=== PATIENT | male | born 1930 | race Two or more races ===

== ENCOUNTER 2017-12-18 07:57 | Inpatient (IN) | payer MEDICARE ==
[2017-12-18] MEDS ORDERED: MORPHINE SULFATE 10 MG/ML INJ IV PRN (08:30)
[2017-12-18] MEDS ORDERED: NORMAL SALINE 500 ML IV ONE (08:30)
--- NOTE | 2017-12-18 08:31 | ER Document Report ---
ED GI/ - General Chief Complaint: Abdominal Pain Stated Complaint: GROIN PAIN Time Seen by Provider: 12/18/17 08:15 Notes: 87-year-old male to emergency department chief complaint of lower abdominal pain mass. Patient states that he has noticed that he has a hernia in the right lower quadrant area. Large mass. Unable to get it pushed in. Significant amount of pain. No fever, chills, sweats. No vomiting. Normally he uses an elevator but has been walking up and down stairs recently. History of prostate cancer with radiation. Denies any other symptoms at this time. TRAVEL OUTSIDE OF THE [place] IN LAST 30 DAYS: No - HPI Patient complains to provider of: Abdominal pain Onset: Just prior to arrival - Related Data Allergies/Adverse Reactions: aspirin Adverse Reaction (Verified 12/18/17 13:29) Past Medical History - General Information source: Patient - Social History Smoking Status: Never Smoker Cigarette use (# per day): No Frequency of alcohol use: None Drug Abuse: None Lives with: Family Family History: Reviewed & Not Pertinent Review of Systems - Review of Systems Notes: Constitutional: denies: Chills, Diaphoresis, Fever, Malaise, Weakness EENT: denies: Eye discharge, Blurred vision, Tearing, Double vision, Nose congestion, Nose discharge, Throat swelling, Mouth pain Cardiovascular: denies: Palpitations, Heart racing, Orthopnea, Dyspnea. denies : Chest pain Respiratory: denies: Cough, Hurts to breathe, Wheezing, Shortness of breath Gastrointestinal: Significant for pain with mass and abdominal pain in the right lower quadrant/right inguinal area. Denies:, Diarrhea, Nausea, Vomiting, Black stools Genitourinary: denies: Burning, Dysuria, Discharge, Frequency, Flank pain, Hematuria Musculoskeletal: Back pain. denies: Joint pain, Joint swelling, Muscle pain, Muscle stiffness Hematologic/Lymphatic: denies: Anemia, Easy bleeding, Easy bruising, Blood clots Neurological/Psychological: denies: Confusion, Dementia, Depression, Lost consciousness Physical Exam - Vital signs Vitals: Resp BP Pulse Ox 27 H 169/120 H 94 12/18/17 08:05 12/18/17 08:05 12/18/17 08:05 Interpretation: Normal - General General appearance: Appears well, Alert - HEENT Head: Normocephalic, Atraumatic Eyes: Normal Pupils: PERRL - Respiratory Respiratory status: No respiratory distress Chest status: Nontender Breath sounds: Normal Chest palpation: Normal - Cardiovascular Rhythm: Irregularly irregular Heart sounds: Normal auscultation Murmur: No - Abdominal Inspection: Other - Large firm right lower quadrant abdominal mass consistent with an inguinal hernia Distension: No distension Bowel sounds: Normal Tenderness: Tender. No: Mancini's sign Organomegaly: No organomegaly - Back Back: Normal, Nontender - Extremities General upper extremity: Normal inspection, Nontender, Normal color, Normal ROM , Normal temperature General lower extremity: Normal inspection, Nontender, Normal color, Normal ROM , Normal temperature, Normal weight bearing. No: Feli's sign - Neurological Neuro grossly intact: Yes Cognition: Normal Orientation: AAOx4 [place] Coma Scale Eye Opening: Spontaneous [place] Coma Scale Verbal: Oriented [place] Coma Scale Motor: Obeys Commands Ivana Coma Scale Total: 15 Speech: Normal Motor strength normal: LUE, RUE, LLE, RLE Sensory: Normal - Psychological Associated symptoms: Normal affect, Normal mood - Skin Skin Temperature: Warm Skin Moisture: Dry Skin Color: Normal Course - Re-evaluation Re-evalutation: 12/18/17 10:12 Patient with incarcerated inguinal hernia. Unable to get reduced. Consulted surgery. He recommended ordering a CT scan. 12/18/17 12:21 Laboratory 12/18/17 12/18/17 12/18/17 08:49 08:49 08:49 WBC 7.1 RBC 3.97 L Hgb 13.4 L Hct 39.1 MCV 99 H MCH 33.7 H MCHC 34.1 RDW 14.3 H Plt Count 117 L Seg Neutrophils % 79.1 H Lymphocytes % 11.0 L Monocytes % 9.3 Eosinophils % 0.2 Basophils % 0.4 Absolute Neutrophils 5.6 Absolute Lymphocytes 0.8 Absolute Monocytes 0.7 Absolute Eosinophils 0.0 Absolute Basophils 0.0 PT 15.8 H INR 1.19 APTT 26.8 Sodium 144.0 Potassium 4.7 Chloride 107 Carbon Dioxide 27 Anion Gap 10 BUN 31 H Creatinine 1.01 Est GFR ( Amer) > 60 Est GFR (Non-Af Amer) > 60 Glucose 150 H Calcium 9.4 Total Bilirubin 1.0 Direct Bilirubin 0.5 H Neonat Total Bilirubin Not Reportable Neonat Direct Bilirubin Not Reportable Neonat Indirect Bili Not Reportable AST 51 ALT 47 Alkaline Phosphatase 130 H Total Protein 7.2 Albumin 3.7 KUB X-Ray 12/18/17 08:29 IMPRESSION: Abnormal bowel gas pattern with distended small bowel loops centrally in the mid abdomen, worrisome for small bowel obstruction CT scan confirms incarcerated strangulated right inguinal hernia as physical exam earlier. Surgeon has been paged again. Awaiting consult. 12/18/17 13:25 Surgeries now at bedside. He is concerned that patient has been taking Eliquis. Patient has evidence of incarcerated strangulated hernia. Patient needs urgent surgery. Surgeon requests that I speak with medicine about hospital admission. Still uncertain whether or not patient is going to go directly to surgery versus being admitted? Extremely hypertensive likely due to pain. Blood pressure 180/124. Still in significant amount of pain. 12/18/17 13:35 Surgeon is requesting FFP and platelets to be transfused now. Will transfer shortly to the operating room. - Vital Signs Vital signs: Temp Pulse Resp BP Pulse Ox 26 H 168/103 H 94 12/18/17 08:35 12/18/17 08:35 12/18/17 08:35 - Laboratory Result Diagrams: 12/18/17 08:49 12/18/17 08:49 Laboratory results interpreted by fl: 12/18/17 12/18/17 12/18/17 08:49 08:49 08:49 RBC 3.97 L Hgb 13.4 L MCV 99 H MCH 33.7 H RDW 14.3 H Plt Count 117 L Seg Neutrophils % 79.1 H Lymphocytes % 11.0 L PT 15.8 H BUN 31 H Glucose 150 H Direct Bilirubin 0.5 H Alkaline Phosphatase 130 H - EKG Interpretation by In EKG shows normal: Intervals, QRS Complexes, ST-T Waves Rhythm: Arrthymia Discharge - Discharge Clinical Impression: Incarcerated inguinal hernia Condition: Good Disposition: ADMITTED INPATIENT Admitting Provider: Surgicalist - Dr. Carter Unit Admitted: Surgical Floor
[2017-12-18 09:24] LABS: ABSOLUTE LYMPHOCYTES (AUTO) 0.8 10^3/uL (0.5-4.7); ABSOLUTE MONOCYTES (AUTO) 0.7 10^3/uL (0.1-1.4); ABSOLUTE NEUT (AUTO) 5.6 10^3/uL (1.7-8.2); BASOPHILS % (AUTO) 0.4 % (0-2); EOSINOPHILS % (AUTO) 0.2 % (0-6); HEMATOCRIT 39.1 % (37.9-51.0); HEMOGLOBIN 13.4 g/dL (13.5-17.0); MEAN CORPUSCULAR HEMOGLOBIN 33.7 pg (27.0-33.4); MEAN CORPUSCULAR HGB CONC 34.1 g/dL (32.0-36.0); MEAN CORPUSCULAR VOLUME 99 fl (80-97); MONOCYTES % (AUTO) 9.3 % (3-13); PLATELET COUNT 117 10^3/uL (150-450); RED BLOOD COUNT 3.97 10^6/uL (4.35-5.55); RED CELL DISTRIBUTION WIDTH 14.3 % (11.5-14.0); SEGMENTED NEUTROPHILS % (AUTO) 79.1 % (42-78); TOTAL CELLS COUNTED % (AUTO) 100 %; WHITE BLOOD COUNT 7.1 10^3/uL (4.0-10.5)
[2017-12-18 09:29] LABS: INTERNATIONAL RATION (INR) 1.19; PROTHROMBIN TIME 15.8 SEC (11.4-15.4)
[2017-12-18 09:30] LABS: PARTIAL THROMBOPLASTIN TIME 26.8 SEC (23.5-35.8)
[2017-12-18 09:31] LABS: ALANINE AMINOTRANSFERASE 47 U/L (21-72); ALBUMIN 3.7 g/dL (3.5-5.0); ALKALINE PHOSPHATASE 130 U/L (38-126); ANION GAP 10 (5-19); ASPARTATE AMINO TRANSFERASE 51 U/L (17-59); BILIRUBIN,DIRECT 0.5 mg/dL (0.0-0.4); BLOOD UREA NITROGEN 31 mg/dL (7-20); CALCIUM 9.4 mg/dL (8.4-10.2); CARBON DIOXIDE 27 mmol/L (22-30); CHLORIDE 107 mmol/L (98-107); GLUCOSE 150 mg/dL (75-110); POTASSIUM 4.7 mmol/L (3.6-5.0); TOTAL PROTEIN 7.2 g/dL (6.3-8.2)
--- NOTE | 2017-12-18 09:34 | RADIOLOGY REPORT (SQ) ---
EXAM DESCRIPTION: KUB/ABDOMEN (SINGLE VIEW) COMPLETED DATE/TIME: 12/18/2017 9:24 am REASON FOR STUDY: inguinal hernia COMPARISON: None. NUMBER OF VIEWS: One view. TECHNIQUE: Supine radiographic image of the abdomen acquired. LIMITATIONS: None. FINDINGS: BOWEL GAS PATTERN: Large amount of stool throughout the colon. Dilated small bowel loops are present in the mid abdomen. Stomach nondistended. CALCIFICATIONS: No suspicious calcifications. SOFT TISSUES: No gross mass or suggestion of organomegaly. HARDWARE: Pelvic surgical clips are present BONES: Markedly osteoporotic. No acute bony changes OTHER: No other significant finding. IMPRESSION: Abnormal bowel gas pattern with distended small bowel loops centrally in the mid abdomen , worrisome for small bowel obstruction TECHNICAL DOCUMENTATION: JOB ID: [id number] [employer]- All Rights Reserved Reading location - IP/workstation name: [email or web address]
[2017-12-18] MEDS: FENTANYL CITRATE INJ/PF 100 MCG/2 ML AMPUL IV PRN ×5 (09:57→23:00)
--- NOTE | 2017-12-18 12:32 | RADIOLOGY REPORT (SQ) ---
EXAM DESCRIPTION: CT ABD/PELVIS WITH IV ORAL COMPLETED DATE/TIME: 12/18/2017 12:03 pm REASON FOR STUDY: right inquinal hernia COMPARISON: None. TECHNIQUE: CT scan of the abdomen and pelvis performed using helical scanning technique with dynamic intravenous contrast injection. No oral contrast. Images reviewed with lung, soft tissue, and bone windows. Reconstructed coronal and sagittal MPR images reviewed. Delayed images for evaluation of the urinary system also acquired. All images stored on PACS. All CT scanners at this facility use dose modulation, iterative reconstruction, and/or weight based d osing when appropriate to reduce radiation dose to as low as reasonably achievable (ALARA). [facility]: Dose Right [facility]: CareDose [facility]: Dose Right [facility]: Teradose 4D [facility]: [place] CONTRAST TYPE AND DOSE: contrast/concentration: Isovue 370.00 mg/ml; Total Contrast Delivered: 83.0 ml; Total Saline Delivered: 68.0 ml 83 mL Isovue 370- low osmolar. RENAL FUNCTION: GFR > 60. RADIATION DOSE: CT Rad equipment meets quality standard of care and radiation dose reduction techniq ues were employed. CTDIvol: 5.1 - 6.7 mGy. DLP: 686 mGy-cm.. LIMITATIONS: None. FINDINGS: LOWER CHEST: Moderate-sized bilateral pleural effusions. Bibasilar atelectasis or infiltr ate. LIVER: Normal size. No masses. No dilated ducts. SPLEEN: Normal size. No focal lesions. PANCREAS: No masses. No significant calcifications. No adjacent inflammation or peripancreatic fluid collections. Pancreatic duct not dilated. GALLBLADDER: No identified stones by CT criteria. No inflammatory changes to suggest cholecystitis. ADRENAL GLANDS: No significant masses or asymmetry. RIGHT KIDNEY AND URETER: Not opacified. Numerous low-density masses that most likely represent cyst ic change. LEFT KIDNEY AND URETER: No solid masses. No significant calcifications. No hydronephrosis or hydr oureter. AORTA AND VESSELS: No aneurysm. No dissection. Renal arteries, SMA, celiac without stenosis. RETROPERITONEUM: No retroperitoneal adenopathy, hemorrhage or masses. BOWEL AND PERITONEAL CAVITY: Marked gaseous distention of small bowel with air-fluid levels consisten t with small bowel obstruction. Oral contrast administered remains in the stomach. APPENDIX: Not visualized. PELVIS: No mass. No free fluid. Normal bladder. ABDOMINAL WALL: Right inguinal hernia containing small bowel. BONES: Moderate compression L1-age indeterminate. OTHER: No other significant finding. IMPRESSION: Right strangulated or incarcerated inguinal hernia with associated small bowel obstructi on. Moderate size bilateral pleural effusions. Bibasilar atelectasis or infiltrate. Right kidney n ot visualized. Multiple cystic lesions at the level of the right kidney. TECHNICAL DOCUMENTATION: JOB ID: [id number] Quality ID # [id number]: Final reports with documentation of one or more dose reduction techniques (e.g., Au tomated exposure control, adjustment of the mA and/or kV according to patient size, use of iterative reconstruction technique) 2010 [employer]- All Rights Reserved Reading location - IP/workstation name: [email or web address]
[2017-12-18 13:25] LABS: APPEARANCE,URINE SLIGHTLY-CLOUDY; BILIRUBIN,URINE NEGATIVE (NEGATIVE); COLOR,URINE YELLOW; GLUCOSE, URINE NEGATIVE (NEGATIVE); KETONES,URINE NEGATIVE (NEGATIVE); LEUKOCYTE ESTERASE,URINE NEGATIVE (NEGATIVE); NITRITE,URINE NEGATIVE (NEGATIVE); PROTEIN,URINE 100 mg/dL (NEGATIVE); URINE SPECIFIC GRAVITY 1.028
[2017-12-18] MEDS ORDERED: NORMAL SALINE 250 ML IV PRN ×2 (13:30→13:32)
[2017-12-18] MEDS ORDERED: OXYCODONE-ACETAMINOPHEN 5-325 MG TABLET PO PRN (13:39)
[2017-12-18] MEDS ORDERED: ACETAMINOPHEN 325 MG TABLET PO PRN (13:39)
[2017-12-18] MEDS ORDERED: LEVALBUTEROL HCL NEB 1.25 MG/3 ML AMPUL NEB PRN (13:39)
[2017-12-18] MEDS ORDERED: ONDANSETRON HCL INJ/PF 4 MG/2 ML SDV IV PRN (13:39)
[2017-12-18] MEDS ORDERED: RINGERS SOLUTION,LACTATED 1,000 ML IV PRN (13:39)
--- NOTE | 2017-12-18 13:40 | PDOC CONSULTATION ---
Consultation Consult Date: 12/18/17 Consult reason:: incarcerated, possibly strangulated right inguinal hernia History of Present Illness Admission Date/PCP: 12/18/17 12:50 Patient complains of: rioght groin bulge with pain History of Present Illness: MARGARETTE BAINS is a 87 year old male with a hx of right groin pain relentless during the past night. Patient underwent repair of RIH in 2005. 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 He is on Eliquis 1 tab BID and took his last dose this AM. A CT scan A/P shows a roight incarcerated, possible strangulated hernia with small bowel obstruction (dilatation of small bowel loops, oral contrast stagnant in stomach). Past Medical History Cardiac Medical History: Reports: Atrial Fibrillation, Hypertension Past Surgical History Past Surgical History: Reports: Appendectomy Social History Lives with: Family Smoking Status: Never Smoker Family History Family History: Reviewed & Not Pertinent Parental Family History Reviewed: No Children Family History Reviewed: No Sibling(s) Family History Reviewed.: No Medication/Allergy Home Medications: Apixaban [Eliquis 2.5 mg Tablet] 2.5 mg PO Q12 12/18/17 Ascorbic Acid [Vitamin C 500 mg Tablet] 1,000 mg PO DAILY 12/18/17 Carvedilol [Coreg 3.125 mg Tablet] 3.125 mg PO DAILY 12/18/17 Ergocalciferol (Vitamin D2) [Drisdol 50,000 Unit (1.25MG) Capsule] 50,000 unit PO SA@1000 12/18/17 Valsartan [Diovan] 320 mg PO DAILY 12/18/17 Vit A and D3 in Cod Liver Oil [Cod Liver Oil Softgel] 1 cap PO DAILY 12/18/17 Physical Exam Vital Signs: Temp Pulse Resp BP Pulse Ox 26 H 168/103 H 94 12/18/17 08:35 12/18/17 08:35 12/18/17 08:35 General appearance: PRESENT: no acute distress, cooperative Head exam: PRESENT: atraumatic Eye exam: PRESENT: EOMI Mouth exam: PRESENT: moist, neck supple Respiratory exam: PRESENT: clear to auscultation glenys Cardiovascular exam: PRESENT: RRR GI/Abdominal exam: PRESENT: firm, hernia - on the right, firm bulge, not reducible, tender, with pain on palpation, soft Extremities exam: PRESENT: full ROM Musculoskeletal exam: PRESENT: full ROM Neurological exam: PRESENT: alert, altered, oriented to time, oriented to situation Results Impressions: KUB X-Ray 12/18/17 08:29 IMPRESSION: Abnormal bowel gas pattern with distended small bowel loops centrally in the mid abdomen, worrisome for small bowel obstruction Abdomen/Pelvis CT 12/18/17 08:32 IMPRESSION: Right strangulated or incarcerated inguinal hernia with associated small bowel obstruction. Moderate size bilateral pleural effusions. Bibasilar atelectasis or infiltrate. Right kidney not visualized. Multiple cystic lesions at the level of the right kidney. Assessment & Plan - Diagnosis (1) Incarcerated inguinal hernia Is this a current diagnosis for this admission?: Yes - Plan Summary Plan Summary: A/ Right inguinal hernia incarcerated, possibly strangulated, recurrent CT scan A/P significant for small bowel obstruction Patient with multiple medical problems (atrial fibrillation, stroke x 3, prostate cancer) Patient fully anticoagulated on Eliquis (last dose this AM) P/ Repair of right inguinal hernia with mesh, possible bowel resection, possible laaprotomy. Procedure, risks, benefits explained to patient and family, the risk of bleeding has been discussed as the patient is fully anticoagulated on Eliquis and no antitode is available (pharmacy called about this). Their questions were answered and he decides to proceed. I will proceed with infusing 2 units FFP and 1 unit jumbo platelets preoperatively; Type and cross 2 units PRBC Mefoxin preop IVF NPO Consent
[2017-12-18] MEDS ORDERED: HYDRALAZINE HCL INJ/PF 20 MG/1 ML SDV IV PRN (13:46)
[2017-12-18] MEDS ORDERED: DILTIAZEM HCL INJ 25 MG/5 ML VIAL IV PRN (13:50)
[2017-12-18] MEDS ORDERED: LORAZEPAM INJ 2 MG/1 ML VIAL IV PRN (13:50)
[2017-12-18] MEDS ORDERED: VALSARTAN 160 MG TABLET PO ONE (16:00)
[2017-12-18] MEDS ORDERED: CARVEDILOL 3.125 MG TABLET PO ONE (16:00)
[2017-12-18] MEDS ORDERED: DIPHENHYDRAMINE HCL 50 MG/ML VIAL IV ONE (16:57)
[2017-12-18] MEDS ORDERED: DILTIAZEM HCL INJ 25 MG/5 ML VIAL IV ONE (16:58)
[2017-12-18] MEDS ORDERED: IPRATROPIUM/ALBUTEROL 0.5-2.5 MG/3 ML AMPUL NEB ONE (17:08)
[2017-12-18] MEDS ORDERED: LABETALOL HCL INJ 20 MG/4 ML DISP.SYRIN IV PRN (17:27)
--- NOTE | 2017-12-18 17:28 | RADIOLOGY REPORT (SQ) ---
EXAM DESCRIPTION: CHEST SINGLE VIEW COMPLETED DATE/TIME: 12/18/2017 5:15 pm REASON FOR STUDY: sob COMPARISON: None. EXAM PARAMETERS: NUMBER OF VIEWS: One view. TECHNIQUE: Single frontal radiographic view of the chest acquired. RADIATION DOSE: NA LIMITATIONS: None. FINDINGS: LUNGS AND PLEURA: Minimal obscuring of the costophrenic angles consistent with pleural eff usion. The larger pleural effusions noted on recent CT scan may be subpulmonic and less well visual ized on on the chest x-ray bibasilar markings greater on the right that may represent atelectasis or infiltrate. MEDIASTINUM AND HILAR STRUCTURES: No masses. Contour normal. HEART AND VASCULAR STRUCTURES: Heart normal in size. Normal vasculature. BONES: No acute findings. HARDWARE: None in the chest. OTHER: No other significant finding. IMPRESSION: Bilateral pleural effusions. See above discussion. Bibasilar markings greater on the r ight that may represent atelectasis or infiltrate. TECHNICAL DOCUMENTATION: JOB ID: [id number] [employer] All Rights Reserved Reading location - IP/workstation name: [email or web address]
[2017-12-18] MEDS ORDERED: FUROSEMIDE INJ/PF 20 MG/2 ML SDV IV ONE (17:30)
[2017-12-18] MEDS ORDERED: METHYLPREDNISOLONE INJ 125 MG/2 ML SDV IV ONE (17:38)
[2017-12-18] MEDS ORDERED: CEFOXITIN 1 GM/D5W RTU 1 GM/50 ML RTUPB IV SCH (18:00)
[2017-12-18 19:28] LABS: HEMATOCRIT 38.6 % (37.9-51.0); HEMOGLOBIN 13.1 g/dL (13.5-17.0); MEAN CORPUSCULAR HEMOGLOBIN 33.4 pg (27.0-33.4); MEAN CORPUSCULAR HGB CONC 33.9 g/dL (32.0-36.0); MEAN CORPUSCULAR VOLUME 99 fl (80-97); PLATELET COUNT 101 10^3/uL (150-450); RED BLOOD COUNT 3.92 10^6/uL (4.35-5.55); RED CELL DISTRIBUTION WIDTH 14.4 % (11.5-14.0); WHITE BLOOD COUNT 6.7 10^3/uL (4.0-10.5)
[2017-12-18] MEDS ORDERED: PIPERACILLIN/TAZOBACTAM 3.375 GM VIAL IV SCH (19:45)
[2017-12-18] MEDS ORDERED: GLUCAGON,HUMAN RECOMB 1 MG INJ SUBCUT PRN (20:12)
[2017-12-18] MEDS ORDERED: DEXTROSE 40% GEL 15 GM TUBE PO PRN ×2 (20:12)
[2017-12-18] MEDS ORDERED: DEXTROSE 50%-WATER 25 GM/50 ML DISP.SYRIN IV PRN ×2 (20:12)
[2017-12-18] MEDS: PIPERACILLIN SODIUM/TAZOBACTAM 3.375 GM in NORMAL SALINE 100 ML IV SCH (21:59)
--- NOTE | 2017-12-18 22:52 | EKG REPORT ---
SEVERITY:- ABNORMAL ECG - A FIB WITH RVR RBBB : Confirmed by: Bebeto Cid 18-Dec-2017 22:52:02
--- NOTE | 2017-12-18 22:52 | EKG REPORT ---
SEVERITY:- ABNORMAL ECG - ATRIAL FIBRILLATION, V-RATE 61-92 RIGHT BUNDLE BRANCH BLOCK PROBABLE ANTEROSEPTAL INFARCT, OLD : Confirmed by: Bebeto Cid 18-Dec-2017 22:52:25
[2017-12-19] MEDS: FENTANYL CITRATE INJ/PF 100 MCG/2 ML AMPUL IV PRN ×7 (01:10→23:02)
[2017-12-19] MEDS: PIPERACILLIN SODIUM/TAZOBACTAM 3.375 GM in NORMAL SALINE 100 ML IV SCH ×4 (02:17→21:06)
--- NOTE | 2017-12-19 03:55 | OPERATIVE REPORT E ---
Operative Report NAME: MARGARETTE BAINS : 1930 AGE: 87Y DATE OF SURGERY: 12/18/2017 ROOM: 326 PREOPERATIVE DIAGNOSES: 1. RIGHT INGUINAL HERNIA, INCARCERATED. 2. ADVANCED AGE. 3. EVOLVING CONGESTIVE HEART FAILURE. 4. CHRONIC OBSTRUCTIVE PULMONARY DISEASE. 5. HISTORY OF PROSTATE CANCER WITH RADIATION THERAPY. POSTOPERATIVE DIAGNOSIS: 1. RIGHT INGUINAL HERNIA, INCARCERATED. 2. ADVANCED AGE. 3. EVOLVING CONGESTIVE HEART FAILURE. 4. CHRONIC OBSTRUCTIVE PULMONARY DISEASE. 5. HISTORY OF PROSTATE CANCER WITH RADIATION THERAPY. 6. SUCCESSFULLY REDUCED RIGHT INGUINAL HERNIA. OPERATION: Manual reduction of incarcerated right inguinal hernia. SURGEON: MARINA NORIEGA M.D. ANESTHESIA: None. COMPLICATIONS: None. FINDINGS: See below. SUMMARY OF PROCEDURE: The patient was evaluated in the emergency department, room 21, at approximately 6 p.m. The patient had been in the emergency department for a number of hours, receiving respiratory support via CPAP, as well as FFP to address his coagulopathy secondary to Eliquis in anticipation of right inguinal exploration for incarcerated right inguinal hernia. The patient has a known history of right inguinal hernia, but no previous history of incarceration. The patient had persistent hypertension, was given Apresoline and had respiratory reaction to either the Apresoline or the accumulative effect of the volume resuscitation. The patient remained hypertensive and in pain. I elected to proceed with an attempt at manual reduction of his inguinal hernia to convert an emergent situation in an extremely high-risk patient to a less emergent one. I explained what I was going to do to the patient, as well as the patient's daughter and son-in-law. I placed the patient in a semirecumbent position and using gentle bimanual compression on the incarcerated right inguinal hernia, I was able to gradually reduce this hernia completely with quaker of intestines likely including multiple loops of small bowel back into the peritoneal cavity. There was immediate relief. The patient's blood pressure subsequently subsided. I explained to the patient's family that manual reduction of an incarcerated hernia sometimes results in the masking of ischemic intestines and patient deterioration with need for subsequent emergent surgery may result. However, in this situation, I told them that I thought we converted an emergency situation requiring emergent operation to a more semi-elective situation. I encouraged the patient's daughter and family in conjunction with the patient, to discuss levels of aggressive of care including desire for intubation should the patient's clinical condition deteriorate. I spoke with Dr. Carter, general surgeon on-call, as well as Dr. Jose Hanley, anesthesiologist, about the interval events. We will cancel the plans for emergent surgery tonight. DICTATING PHYSICIAN: MARINA NORIEGA M.D. [id number] PHY#: [id number] ID: [id number] JOB#: [id number] ACCT: [id number] cc:MARINA NORIEGA M.D. >
[2017-12-19 06:17] LABS: INTERNATIONAL RATION (INR) 1.23; PROTHROMBIN TIME 16.2 SEC (11.4-15.4)
[2017-12-19 06:24] LABS: ANION GAP 9 (5-19); BLOOD UREA NITROGEN 28 mg/dL (7-20); CALCIUM 8.8 mg/dL (8.4-10.2); CARBON DIOXIDE 28 mmol/L (22-30); CHLORIDE 107 mmol/L (98-107); CHOLESTEROL 180.43 mg/dL (0-200); GLUCOSE 158 mg/dL (75-110); POTASSIUM 4.1 mmol/L (3.6-5.0); SODIUM 144.1 mmol/L (137-145); TRIGLYCERIDES 52 mg/dL (<150)
[2017-12-19 06:35] LABS: DIRECT LDL 72 mg/dL (<100)
[2017-12-19 06:47] LABS: ABSOLUTE LYMPHOCYTES (AUTO) 0.4 10^3/uL (0.5-4.7); ABSOLUTE MONOCYTES (AUTO) 0.3 10^3/uL (0.1-1.4); ABSOLUTE NEUT (AUTO) 4.7 10^3/uL (1.7-8.2); BASOPHILS % (AUTO) 0.1 % (0-2); EOSINOPHILS % (AUTO) 0.1 % (0-6); HEMATOCRIT 39.5 % (37.9-51.0); HEMOGLOBIN 13.4 g/dL (13.5-17.0); LYMPHOCYTES % (AUTO) 8.2 % (13-45); MEAN CORPUSCULAR HEMOGLOBIN 33.7 pg (27.0-33.4); MEAN CORPUSCULAR HGB CONC 33.9 g/dL (32.0-36.0); MEAN CORPUSCULAR VOLUME 99 fl (80-97); MONOCYTES % (AUTO) 4.8 % (3-13); PLATELET COUNT 87 10^3/uL (150-450); RED BLOOD COUNT 3.98 10^6/uL (4.35-5.55); RED CELL DISTRIBUTION WIDTH 14.3 % (11.5-14.0); SEGMENTED NEUTROPHILS % (AUTO) 86.8 % (42-78); TOTAL CELLS COUNTED % (AUTO) 100 %; WHITE BLOOD COUNT 5.4 10^3/uL (4.0-10.5)
--- NOTE | 2017-12-19 09:27 | PDOC H&P ---
History of Present Illness Admission Date/PCP: 12/18/17 13:39 Patient complains of: abdominal pain History of Present Illness: MARGARETTE BAINS is a 87 year old male with past medical history of CVA x3, HTN, Afib on Eliquis, prostate cancer s/p radiation, hx of multiple hernia repairs and CKD. Presents with new onset abdominal pain that started yesterday. States that pain became severe at 3-4 AM this morning. Evaluated by CT abd/pelvis and found to have features of a strangulated hernia. Surgery evaluated him and made initial plans to take him to the OR. He was being given FFP transfusion for reversal of his Eliquis. He received IV hydralazine x1 and had a possible reaction to this. Called to patient's bedside and he had a possible flash pulmonary edema on CXR, and Afib with RVR on monitor. He was given a 20mg IV Diltiazem push, and rate improved. Was placed on Bipap and given 20mg of IV lasix x1. This may have been secondary to blood product transfusion. For a possible allergic reaction, he was given a one time solumedrol IV and benedryl IV. When patient was drinking contrast for the CT test, he was noted to have coughing with concern for possible aspiration. A second surgeon reviewed the case and was able to reduce the hernia. Lactic acid is pending. Patient will be admitted to IMCU for close monitoring. Will continue to hold Eliquis therapy for possible need for surgery at present. Past Medical History Cardiac Medical History: Reports: Atrial Fibrillation, Hypertension, Other - atrial fibrillation Neurological Medical History: Reports: Ischemic CVA Past Surgical History Past Surgical History: Reports: Appendectomy, Other - hernia repairs Social History Lives with: Family Smoking Status: Former Smoker Last Time Smoked: Frequency of Alcohol Use: Rare Hx Recreational Drug Use: No Hx Prescription Drug Abuse: No Family History Family History: Reviewed & Not Pertinent Family History: father had hx of hernias and NH mother had NH Parental Family History Reviewed: Yes Children Family History Reviewed: No Sibling(s) Family History Reviewed.: No Medication/Allergy Home Medications: Apixaban [Eliquis 2.5 mg Tablet] 2.5 mg PO Q12 12/18/17 Ascorbic Acid [Vitamin C 500 mg Tablet] 1,000 mg PO DAILY 12/18/17 Carvedilol [Coreg 3.125 mg Tablet] 3.125 mg PO DAILY 12/18/17 Ergocalciferol (Vitamin D2) [Drisdol 50,000 Unit (1.25MG) Capsule] 50,000 unit PO SA@1000 12/18/17 Valsartan [Diovan] 320 mg PO DAILY 12/18/17 Vit A and D3 in Cod Liver Oil [Cod Liver Oil Softgel] 1 cap PO DAILY 12/18/17 Allergies/Adverse Reactions: hydralazine [From Apresoline] Allergy (Verified 12/18/17 19:28) aspirin Adverse Reaction (Verified 12/18/17 13:29) Review of Systems Constitutional: PRESENT: fatigue. ABSENT: fever(s), weakness Ears: ABSENT: hearing changes Nose, Mouth, and Throat: ABSENT: mouth pain, sore throat Cardiovascular: PRESENT: edema. ABSENT: chest pain Respiratory: ABSENT: dyspnea, hemoptysis Gastrointestinal: PRESENT: abdominal pain. ABSENT: diarrhea Musculoskeletal: ABSENT: deformity Integumentary: ABSENT: diaphoresis, lesions Neurological: ABSENT: numbness, weakness Psychiatric: ABSENT: anxiety, hallucinations Endocrine: ABSENT: cold intolerance, heat intolerance Hematologic/Lymphatic: ABSENT: easy bruising, lymphadenopathy Allergic/Immunologic: ABSENT: seasonal rhinorrhea Physical Exam Vital Signs: Temp Pulse Resp BP Pulse Ox 97.8 F 94 28 H 200/121 H 100 12/18/17 16:32 12/18/17 16:32 12/18/17 16:32 12/18/17 16:32 12/18/17 16:32 Intake & Output 12/17/17 12/18/17 12/19/17 06:59 06:59 06:59 Intake Total 270 Balance 270 Weight 63.957 kg General appearance: PRESENT: mild distress, thin Head exam: PRESENT: atraumatic, normocephalic Eye exam: PRESENT: EOMI, PERRLA Ear exam: PRESENT: normal external ear exam. ABSENT: drainage Mouth exam: PRESENT: moist, neck supple Throat exam: ABSENT: tonsillar erythema, tonsillar exudate Neck exam: ABSENT: tenderness, thyromegaly Respiratory exam: PRESENT: accessory muscle use, prolonged expiratory phas, rales, wheezes. ABSENT: rhonchi Cardiovascular exam: PRESENT: irregular rhythm, +S1, +S2 Pulses: PRESENT: normal radial pulses, normal dorsalis pedis pul Vascular exam: PRESENT: normal capillary refill. ABSENT: pallor GI/Abdominal exam: PRESENT: normal bowel sounds, rigid - right lower abdominal hernia, soft Extremities exam: PRESENT: pedal edema. ABSENT: clubbing, joint swelling Musculoskeletal exam: PRESENT: full ROM. ABSENT: deformity Neurological exam: PRESENT: alert, oriented to person, oriented to place, oriented to time, CN II-XII grossly intact Psychiatric exam: ABSENT: agitated, anxious, manic Focused psych exam: ABSENT: catatonic, paranoid Skin exam: PRESENT: normal color. ABSENT: mottled Results Impressions: KUB X-Ray 12/18/17 08:29 IMPRESSION: Abnormal bowel gas pattern with distended small bowel loops centrally in the mid abdomen, worrisome for small bowel obstruction Abdomen/Pelvis CT 12/18/17 08:32 IMPRESSION: Right strangulated or incarcerated inguinal hernia with associated small bowel obstruction. Moderate size bilateral pleural effusions. Bibasilar atelectasis or infiltrate. Right kidney not visualized. Multiple cystic lesions at the level of the right kidney. Chest X-Ray 12/18/17 17:00 IMPRESSION: Bilateral pleural effusions. See above discussion. Bibasilar markings greater on the right that may represent atelectasis or infiltrate. Assessment & Plan - Diagnosis (1) Incarcerated inguinal hernia Is this a current diagnosis for this admission?: Yes Plan: Surgery consulted. Lactic acid pending. Surgery was able to reduce patient's hernia. Admit to IMCU. prn pain medications. continue close monitoring. Denies hx of NH. EKG without ischemic findings. Denies chest pain on this admission. Limited activity secondary to CVA history (2) Atrial fibrillation with RVR Is this a current diagnosis for this admission?: Yes Plan: prn Diltiazem IV with use parameters. currently maintaining a rate around 80s after receiving 20mg IV x1 in the ED continue to hold Eliquis at present for any possible surgical interventions needed during this hospitalization. (3) Hypertensive urgency Is this a current diagnosis for this admission?: Yes Plan: d/c hydralazine from chart due to possible allergic response witnessed by staff after it was given. prn labetalol on chart for use parameters. continue coreg and valsartan from home medication list. BP has sinse improved to 150s/80s at present. (4) Flash pulmonary edema Is this a current diagnosis for this admission?: Yes Plan: continue Bipap support. bilateral pulm edema noted on CXR in ED giving Lasix 20mg IV x1 at present and monitor CXR repeat tomorrow AM. (5) Aspiration into airway Is this a current diagnosis for this admission?: Yes Plan: Aspiration/coughing event noticed in ED on attempts with contrast. consult speech for evaluation. NPO at present. start empiric Zosyn for possible aspiration event. (6) History of CVA (cerebrovascular accident) Is this a current diagnosis for this admission?: Yes Plan: hx of CVA x3. Holding Eliquis due to a possibility of surgery on this admission. check lipid panel. patient is unable to take ASA, listed as allergy on chart, but describes hematuria with use in the past. (7) History of prostate cancer Is this a current diagnosis for this admission?: Yes Plan: monitor for any signs of hematuria otherwise, resume outpatient follow up for this. - Time Time Spent: 30 to 50 Minutes - Inpatient Certification I certify that my determination is in accordance with my understanding of Medicare's requirements for reasonable and necessary INPATIENT services [42 CFR 412.3e].: Yes Medical Necessity: Need Close Monitoring Due to Risk of Patient Decompensation
--- NOTE | 2017-12-19 09:39 | RADIOLOGY REPORT (SQ) ---
EXAM DESCRIPTION: CHEST SINGLE VIEW COMPLETED DATE/TIME: 12/19/2017 9:03 am REASON FOR STUDY: aspiration COMPARISON: Chest films 12/18/2017 EXAM PARAMETERS: NUMBER OF VIEWS: One view. TECHNIQUE: Single frontal radiographic view of the chest acquired. RADIATION DOSE: NA LIMITATIONS: None. FINDINGS: LUNGS AND PLEURA: There is dense consolidation in the left retrocardiac region atelectasis versus pneumonia. Patchy right basilar airspace disease is present atelectasis versus pneumonia. Upper lobes are hyperlucent from obstructive disease. No gross pleural effusions or pneumothorax MEDIASTINUM AND HILAR STRUCTURES: No masses. Contour normal. HEART AND VASCULAR STRUCTURES: Stable moderate to marked cardiomegaly BONES: No acute findings. HARDWARE: None in the chest. OTHER: No other significant finding. IMPRESSION: Dense consolidation left retrocardiac region worrisome for pneumonia. Minimal right basilar airspace disease, atelectasis versus pneumonia TECHNICAL DOCUMENTATION: JOB ID: [id number] [employer] All Rights Reserved Reading location - IP/workstation name: [email or web address]
--- NOTE | 2017-12-19 09:41 | EKG REPORT ---
SEVERITY:- ABNORMAL ECG - A FIB RVR RBBB : Confirmed by: Bebeto Cid 19-Dec-2017 09:40:53
[2017-12-19] MEDS ORDERED: (PENDING PHARMACY ID) (Valsartan [Diovan] 320 MG) PO SCH (10:00)
[2017-12-19] MEDS: CARVEDILOL 3.125 MG TABLET PO SCH (11:36)
[2017-12-19] MEDS: VALSARTAN 160 MG TABLET PO SCH (11:38)
--- NOTE | 2017-12-19 17:21 | PDOC PROGRESS REPORT ---
Subjective Progress Note for:: 12/19/17 Subjective:: This is an 87-year-old male with a previously incarcerated right inguinal hernia. The patient's hernia was reduced yesterday. The patient denies any abdominal pain, nausea, vomiting, fevers, chills, melena, hematochezia. He reports that his hernia is reducible again today. Patient is feeling well. He denies chest pain, headache, or shortness of breath. Reason For Visit: STRANGULATED HERNIA Physical Exam Vital Signs: Temp Pulse Resp BP Pulse Ox 98.4 F 95 20 118/72 95 12/19/17 16:39 12/19/17 16:39 12/19/17 16:39 12/19/17 16:39 12/19/17 16:39 Intake & Output 12/18/17 12/19/17 12/20/17 06:59 06:59 06:59 Intake Total 400 Output Total 1125 225 Balance -725 -225 Weight 67.9 kg General appearance: PRESENT: no acute distress Head exam: PRESENT: atraumatic, normocephalic Eye exam: PRESENT: EOMI, PERRLA Mouth exam: PRESENT: neck supple Neck exam: ABSENT: meningismus, tenderness, thyromegaly, tracheal deviation Respiratory exam: ABSENT: accessory muscle use, stridor, tachypnea, wheezes Cardiovascular exam: PRESENT: RRR Pulses: PRESENT: normal radial pulses Vascular exam: PRESENT: normal capillary refill GI/Abdominal exam: PRESENT: hernia - Reducible right inguinal, normal bowel sounds, soft. ABSENT: distended, rebound, tenderness Rectal exam: PRESENT: deferred Neurological exam: PRESENT: alert, awake, oriented to person, oriented to place , oriented to time, oriented to situation, CN II-XII grossly intact Psychiatric exam: ABSENT: agitated, anxious, depressed Skin exam: ABSENT: cyanosis, erythema, jaundice, pallor, rash Results Laboratory Results: 12/19/17 05:21 12/19/17 05:21 12/18/17 12/18/17 12/18/17 19:20 20:45 23:00 WBC 6.7 RBC 3.92 L Hgb 13.1 L Hct 38.6 MCV 99 H MCH 33.4 MCHC 33.9 RDW 14.4 H Plt Count 101 L Seg Neutrophils % Lymphocytes % Monocytes % Eosinophils % Basophils % Absolute Neutrophils Absolute Lymphocytes Absolute Monocytes Absolute Eosinophils Absolute Basophils Sodium Potassium Chloride Carbon Dioxide Anion Gap BUN Creatinine Est GFR ( Amer) Est GFR (Non-Af Amer) Glucose Lactic Acid 2.4 H 1.5 Calcium Magnesium Triglycerides Cholesterol LDL Cholesterol Direct VLDL Cholesterol HDL Cholesterol 12/19/17 12/19/17 05:21 05:21 WBC 5.4 RBC 3.98 L Hgb 13.4 L Hct 39.5 MCV 99 H MCH 33.7 H MCHC 33.9 RDW 14.3 H Plt Count 87 L Seg Neutrophils % 86.8 H Lymphocytes % 8.2 L Monocytes % 4.8 Eosinophils % 0.1 Basophils % 0.1 Absolute Neutrophils 4.7 Absolute Lymphocytes 0.4 L Absolute Monocytes 0.3 Absolute Eosinophils 0.0 Absolute Basophils 0.0 Sodium 144.1 Potassium 4.1 Chloride 107 Carbon Dioxide 28 Anion Gap 9 BUN 28 H Creatinine 1.03 Est GFR ( Amer) > 60 Est GFR (Non-Af Amer) > 60 Glucose 158 H Lactic Acid Calcium 8.8 Magnesium 1.8 Triglycerides 52 Cholesterol 180.43 LDL Cholesterol Direct 72 VLDL Cholesterol 10.0 HDL Cholesterol 74 Impressions: KUB X-Ray 12/18/17 08:29 IMPRESSION: Abnormal bowel gas pattern with distended small bowel loops centrally in the mid abdomen, worrisome for small bowel obstruction Abdomen/Pelvis CT 12/18/17 08:32 IMPRESSION: Right strangulated or incarcerated inguinal hernia with associated small bowel obstruction. Moderate size bilateral pleural effusions. Bibasilar atelectasis or infiltrate. Right kidney not visualized. Multiple cystic lesions at the level of the right kidney. Chest X-Ray 12/19/17 08:00 IMPRESSION: Dense consolidation left retrocardiac region worrisome for pneumonia. Minimal right basilar airspace disease, atelectasis versus pneumonia Assessment & Plan - Diagnosis (1) Incarcerated inguinal hernia Is this a current diagnosis for this admission?: Yes - Plan Summary Plan Summary: This is an 87-year-old male with a previously incarcerated right inguinal hernia. It was reduced at the bedside yesterday. The patient has no abdominal pain. His hernia remains reducible. I have discussed the patient's care with the family. They are from [facility]. They wish to return to [place] before proceeding with any surgical intervention. This is a reasonable approach. The patient has requested a hernia belt/truss. I will provide this for the patient. I will see the patient again on an as-needed basis. Please renotify with any questions or concerns.
--- NOTE | 2017-12-19 18:43 | PDOC PROGRESS REPORT ---
Subjective Progress Note for:: 12/19/17 Subjective:: Feeling better today. Requiring intermittent BiPAP. Abdominal pain better. No chest pain or palpitations. No fever or chills, no nausea or vomiting. Reason For Visit: STRANGULATED HERNIA Physical Exam Vital Signs: Temp Pulse Resp BP Pulse Ox 98.4 F 95 20 118/72 95 12/19/17 16:39 12/19/17 16:39 12/19/17 16:39 12/19/17 16:39 12/19/17 16:39 Intake & Output 12/18/17 12/19/17 12/20/17 06:59 06:59 06:59 Intake Total 400 236 Output Total 1125 325 Balance -725 -89 Weight 67.9 kg GEN: NAD, well-developed, well-nourished CV: RRR, NL S1S2 LUNGS: Few basilar crackles, good air movement ABDOMEN Soft, NT, +BS EXTERMITIES: No e/c/c NEURO: Alert, oriented 3, no acute weakness Results Laboratory Results: 12/19/17 05:21 12/19/17 05:21 12/18/17 12/18/17 12/18/17 19:20 20:45 23:00 WBC 6.7 RBC 3.92 L Hgb 13.1 L Hct 38.6 MCV 99 H MCH 33.4 MCHC 33.9 RDW 14.4 H Plt Count 101 L Seg Neutrophils % Lymphocytes % Monocytes % Eosinophils % Basophils % Absolute Neutrophils Absolute Lymphocytes Absolute Monocytes Absolute Eosinophils Absolute Basophils Sodium Potassium Chloride Carbon Dioxide Anion Gap BUN Creatinine Est GFR ( Amer) Est GFR (Non-Af Amer) Glucose Lactic Acid 2.4 H 1.5 Calcium Magnesium Triglycerides Cholesterol LDL Cholesterol Direct VLDL Cholesterol HDL Cholesterol 12/19/17 12/19/17 05:21 05:21 WBC 5.4 RBC 3.98 L Hgb 13.4 L Hct 39.5 MCV 99 H MCH 33.7 H MCHC 33.9 RDW 14.3 H Plt Count 87 L Seg Neutrophils % 86.8 H Lymphocytes % 8.2 L Monocytes % 4.8 Eosinophils % 0.1 Basophils % 0.1 Absolute Neutrophils 4.7 Absolute Lymphocytes 0.4 L Absolute Monocytes 0.3 Absolute Eosinophils 0.0 Absolute Basophils 0.0 Sodium 144.1 Potassium 4.1 Chloride 107 Carbon Dioxide 28 Anion Gap 9 BUN 28 H Creatinine 1.03 Est GFR ( Amer) > 60 Est GFR (Non-Af Amer) > 60 Glucose 158 H Lactic Acid Calcium 8.8 Magnesium 1.8 Triglycerides 52 Cholesterol 180.43 LDL Cholesterol Direct 72 VLDL Cholesterol 10.0 HDL Cholesterol 74 Impressions: KUB X-Ray 12/18/17 08:29 IMPRESSION: Abnormal bowel gas pattern with distended small bowel loops centrally in the mid abdomen, worrisome for small bowel obstruction Abdomen/Pelvis CT 12/18/17 08:32 IMPRESSION: Right strangulated or incarcerated inguinal hernia with associated small bowel obstruction. Moderate size bilateral pleural effusions. Bibasilar atelectasis or infiltrate. Right kidney not visualized. Multiple cystic lesions at the level of the right kidney. Chest X-Ray 12/19/17 08:00 IMPRESSION: Dense consolidation left retrocardiac region worrisome for pneumonia. Minimal right basilar airspace disease, atelectasis versus pneumonia Assessment & Plan - Diagnosis (1) Aspiration pneumonia Is this a current diagnosis for this admission?: Yes (2) Aspiration into airway Is this a current diagnosis for this admission?: Yes (3) Atrial fibrillation with RVR Is this a current diagnosis for this admission?: Yes (4) History of CVA (cerebrovascular accident) Is this a current diagnosis for this admission?: Yes (5) Incarcerated inguinal hernia Is this a current diagnosis for this admission?: Yes - Plan Summary Plan Summary: We will continue Zosyn, BiPAP/O2 as needed. Nebulizers as needed. Will treat with prednisone given mild wheezing. Follow-up CBC and Chem-7 in a.m. Surgical follow-up appreciated. No surgery planned for inguinal hernia at this.
[2017-12-20] MEDS: FENTANYL CITRATE INJ/PF 100 MCG/2 ML AMPUL IV PRN ×11 (01:30→21:25)
[2017-12-20] MEDS: PIPERACILLIN SODIUM/TAZOBACTAM 3.375 GM in NORMAL SALINE 100 ML IV SCH ×4 (04:06→21:25)
[2017-12-20 05:14] LABS: ABSOLUTE LYMPHOCYTES (AUTO) 0.9 10^3/uL (0.5-4.7); ABSOLUTE MONOCYTES (AUTO) 0.7 10^3/uL (0.1-1.4); ABSOLUTE NEUT (AUTO) 4.9 10^3/uL (1.7-8.2); BASOPHILS % (AUTO) 0.2 % (0-2); HEMATOCRIT 37.1 % (37.9-51.0); HEMOGLOBIN 12.6 g/dL (13.5-17.0); LYMPHOCYTES % (AUTO) 13.8 % (13-45); MEAN CORPUSCULAR HEMOGLOBIN 33.2 pg (27.0-33.4); MEAN CORPUSCULAR HGB CONC 33.9 g/dL (32.0-36.0); MEAN CORPUSCULAR VOLUME 98 fl (80-97); MONOCYTES % (AUTO) 11.4 % (3-13); RED BLOOD COUNT 3.79 10^6/uL (4.35-5.55); RED CELL DISTRIBUTION WIDTH 14.6 % (11.5-14.0); SEGMENTED NEUTROPHILS % (AUTO) 74.6 % (42-78); TOTAL CELLS COUNTED % (AUTO) 100 %; WHITE BLOOD COUNT 6.5 10^3/uL (4.0-10.5)
[2017-12-20 05:22] LABS: ANION GAP 8 (5-19); BLOOD UREA NITROGEN 43 mg/dL (7-20); CARBON DIOXIDE 25 mmol/L (22-30); CHLORIDE 113 mmol/L (98-107); GLUCOSE 112 mg/dL (75-110); SODIUM 146.4 mmol/L (137-145)
[2017-12-20 06:38] LABS: PLATELET COUNT 93 10^3/uL (150-450)
[2017-12-20] MEDS: VALSARTAN 160 MG TABLET PO SCH (09:00)
[2017-12-20] MEDS: CARVEDILOL 3.125 MG TABLET PO SCH (09:00)
[2017-12-20] MEDS: PREDNISONE 20 MG TABLET PO SCH ×2 (09:01→18:35)
--- NOTE | 2017-12-20 16:29 | PDOC PROGRESS REPORT ---
Subjective Progress Note for:: 12/20/17 Subjective:: Had some loose bowel movement today possibly related to antibiotics. Requiring intermittent BiPAP still. Abdominal pain better, status post reduction of incarcerated inguinal hernia. No chest pain or palpitations. No fever or chills, no nausea or vomiting. Reason For Visit: STRANGULATED HERNIA Physical Exam Vital Signs: Temp Pulse Resp BP Pulse Ox 97.8 F 74 20 159/93 H 100 12/20/17 15:36 12/20/17 15:36 12/20/17 15:36 12/20/17 15:36 12/20/17 15:36 Intake & Output 12/19/17 12/20/17 12/21/17 06:59 06:59 06:59 Intake Total 400 1656 165 Output Total 1125 600 300 Balance -725 1056 -135 Weight 67.9 kg 67.7 kg GEN: NAD, well-developed, well-nourished CV: RRR, NL S1S2 LUNGS: Few basilar crackles, good air movement ABDOMEN Soft, NT, +BS EXTERMITIES: No e/c/c NEURO: Alert, oriented 3, no acute weakness Results Laboratory Results: 12/20/17 04:50 12/20/17 04:50 12/20/17 12/20/17 04:50 04:50 WBC 6.5 RBC 3.79 L Hgb 12.6 L Hct 37.1 L MCV 98 H MCH 33.2 MCHC 33.9 RDW 14.6 H Plt Count 93 L Seg Neutrophils % 74.6 Lymphocytes % 13.8 Monocytes % 11.4 Eosinophils % 0.0 Basophils % 0.2 Absolute Neutrophils 4.9 Absolute Lymphocytes 0.9 Absolute Monocytes 0.7 Absolute Eosinophils 0.0 Absolute Basophils 0.0 Sodium 146.4 H Potassium 4.0 Chloride 113 H Carbon Dioxide 25 Anion Gap 8 BUN 43 H Creatinine 1.19 Est GFR ( Amer) > 60 Est GFR (Non-Af Amer) 58 L Glucose 112 H Calcium 9.0 Impressions: KUB X-Ray 12/18/17 08:29 IMPRESSION: Abnormal bowel gas pattern with distended small bowel loops centrally in the mid abdomen, worrisome for small bowel obstruction Abdomen/Pelvis CT 12/18/17 08:32 IMPRESSION: Right strangulated or incarcerated inguinal hernia with associated small bowel obstruction. Moderate size bilateral pleural effusions. Bibasilar atelectasis or infiltrate. Right kidney not visualized. Multiple cystic lesions at the level of the right kidney. Chest X-Ray 12/19/17 08:00 IMPRESSION: Dense consolidation left retrocardiac region worrisome for pneumonia. Minimal right basilar airspace disease, atelectasis versus pneumonia Assessment & Plan - Diagnosis (1) Aspiration pneumonia Is this a current diagnosis for this admission?: Yes (2) Aspiration into airway Is this a current diagnosis for this admission?: Yes (3) Atrial fibrillation with RVR Is this a current diagnosis for this admission?: Yes (4) History of CVA (cerebrovascular accident) Is this a current diagnosis for this admission?: Yes (5) Incarcerated inguinal hernia Is this a current diagnosis for this admission?: Yes - Plan Summary Plan Summary: We will continue Zosyn, BiPAP/O2 as needed. Nebulizers as needed. Will treat with prednisone at 40 mg daily for now. Preliminary blood culture growing gram positive cocci. No fever or leukocytosis at this time. We will continue Zosyn for now. Please continue follow blood culture result for identification of organism and sensitivity. Will recheck chest x-ray PA and lateral in a.m. Will also recheck blood cultures in a.m. Also follow-up CBC and Chem-7 in a.m. Surgical note appreciated regarding incarcerated inguinal hernia that was reduced. No surgery planned at this time.
[2017-12-21] MEDS: FENTANYL CITRATE INJ/PF 100 MCG/2 ML AMPUL IV PRN ×6 (01:10→08:53)
[2017-12-21] MEDS: PIPERACILLIN SODIUM/TAZOBACTAM 3.375 GM in NORMAL SALINE 100 ML IV SCH ×2 (02:04→08:22)
[2017-12-21 05:21] LABS: ABSOLUTE LYMPHOCYTES (AUTO) 0.6 10^3/uL (0.5-4.7); ABSOLUTE MONOCYTES (AUTO) 0.3 10^3/uL (0.1-1.4); ABSOLUTE NEUT (AUTO) 5.3 10^3/uL (1.7-8.2); BASOPHILS % (AUTO) 0.2 % (0-2); HEMATOCRIT 37.8 % (37.9-51.0); HEMOGLOBIN 12.9 g/dL (13.5-17.0); LYMPHOCYTES % (AUTO) 9.3 % (13-45); MEAN CORPUSCULAR HEMOGLOBIN 33.7 pg (27.0-33.4); MEAN CORPUSCULAR HGB CONC 34.1 g/dL (32.0-36.0); MEAN CORPUSCULAR VOLUME 99 fl (80-97); MONOCYTES % (AUTO) 4.7 % (3-13); RED BLOOD COUNT 3.83 10^6/uL (4.35-5.55); RED CELL DISTRIBUTION WIDTH 14.8 % (11.5-14.0); SEGMENTED NEUTROPHILS % (AUTO) 85.8 % (42-78); TOTAL CELLS COUNTED % (AUTO) 100 %; WHITE BLOOD COUNT 6.2 10^3/uL (4.0-10.5)
[2017-12-21 05:36] LABS: ANION GAP 9 (5-19); BLOOD UREA NITROGEN 45 mg/dL (7-20); CARBON DIOXIDE 29 mmol/L (22-30); CHLORIDE 112 mmol/L (98-107); GLUCOSE 157 mg/dL (75-110); POTASSIUM 3.8 mmol/L (3.6-5.0); SODIUM 149.7 mmol/L (137-145)
[2017-12-21] MEDS ORDERED: LABETALOL HCL INJ 20 MG/4 ML DISP.SYRIN IV ONE (05:44)
[2017-12-21 05:45] LABS: PLATELET COUNT 95 10^3/uL (150-450)
--- NOTE | 2017-12-21 08:30 | RADIOLOGY REPORT (SQ) ---
EXAM DESCRIPTION: CHEST 2 VIEWS COMPLETED DATE/TIME: 12/21/2017 8:01 am REASON FOR STUDY: PNA COMPARISON: AP chest 12/19/2017, 12/18/2017 EXAM PARAMETERS: NUMBER OF VIEWS: two views TECHNIQUE: Digital Frontal and Lateral radiographic views of the chest acquired. RADIATION DOSE: NA LIMITATIONS: none FINDINGS: LUNGS AND PLEURA: Small bilateral pleural effusions are present. There is bibasilar airspace disease atelectasis versus pneumonia, similar compared to previous studie s. No pneumothorax. MEDIASTINUM AND HILAR STRUCTURES: No masses or contour abnormalities. HEART AND VASCULAR STRUCTURES: Stable cardiomegaly BONES: Osteopenic without thoracic compression deformity HARDWARE: None in the chest. OTHER: No other significant finding. IMPRESSION: Bilateral pleural effusions with bibasilar airspace disease atelectasis versus pneumonia . TECHNICAL DOCUMENTATION: JOB ID: [id number]- All Rights Reserved Reading location - IP/workstation name: [email or web address]
[2017-12-21] MEDS ORDERED: DEXTROSE 5%-1/4 NORMAL SALINE 1,000 ML IV PRN (08:40)
[2017-12-21] MEDS: VALSARTAN 160 MG TABLET PO SCH (09:50)
[2017-12-21] MEDS: CARVEDILOL 3.125 MG TABLET PO SCH (09:50)
[2017-12-21] MEDS ORDERED: LACTOBACILLUS ACIDOPHILUS 250 MG TAB PO SCH (10:00)
[2017-12-21] MEDS ORDERED: PREDNISONE 20 MG TABLET PO SCH (10:00)
--- NOTE | 2017-12-21 13:16 | PDOC TRANSFER SUMMARY ---
General Admission Date/PCP: 12/18/17 13:39 Admission Date: 12/21/17 Accepting Facility: [place], [place] Resuscitation Status: Full Code - Transfer Diagnosis (1) Aspiration pneumonia Is this a current diagnosis for this admission?: Yes Diagnosis Summary: Chest xray shows bilateral airspace disease, atelectasis versus pneumonia. Patient's had no leukocytosis or fever. He does have a congested cough. Patient had 1 out of 4 blood cultures show gram-positive cocci. This returned positive last evening. Final cultures pending most likely contaminant. Patient was on IV Zosyn for the last 3 days. He escalated to Augmentin this morning. He initially required BiPAP therapy. Is now on nasal cannula at 2 L/ min. He does not wear home oxygen. (2) Atrial fibrillation with RVR Is this a current diagnosis for this admission?: Yes Diagnosis Summary: Patient's controlled rate A. fib versus occasional sinus rhythm. His Eliquis is on hold, due to possible surgery and now hematuria. (3) Flash pulmonary edema Is this a current diagnosis for this admission?: Yes (4) History of CVA (cerebrovascular accident) Is this a current diagnosis for this admission?: Yes (5) History of prostate cancer Is this a current diagnosis for this admission?: Yes (6) Hypertensive urgency Is this a current diagnosis for this admission?: Yes (7) Incarcerated inguinal hernia Is this a current diagnosis for this admission?: Yes (8) Acute hypernatremia Is this a current diagnosis for this admission?: Yes Diagnosis Summary: Patient had been diuresed. He was started on diet yesterday. Appetite has been poor. Will change IV fluids to D5 and a quarter normal saline at 75 cc/h. recheck BMP in the a.m. (9) Acute kidney injury Is this a current diagnosis for this admission?: Yes Diagnosis Summary: Secondary to mild dehydration. Will continue IV fluid and monitor. Avoid nephrotoxic medications and dosages - Transfer Medications Home Medications: Apixaban [Eliquis 2.5 mg Tablet] 2.5 mg PO Q12 12/18/17 Ascorbic Acid [Vitamin C 500 mg Tablet] 1,000 mg PO DAILY 12/18/17 Carvedilol [Coreg 3.125 mg Tablet] 3.125 mg PO DAILY 12/18/17 Ergocalciferol (Vitamin D2) [Drisdol 50,000 Unit (1.25MG) Capsule] 50,000 unit PO SA@1000 12/18/17 Valsartan [Diovan] 320 mg PO DAILY 12/18/17 Vit A and D3 in Cod Liver Oil [Cod Liver Oil Softgel] 1 cap PO DAILY 12/18/17 Transfer Medications: Current Medications Acetaminophen (Tylenol 325 Mg Tablet) 650 mg PO Q4HP PRN PRN Reason: for pain or temp >101 Stop: 01/17/18 13:38 Amoxicillin/Clavulanate Potassium (Augmentin 500-125 Tablet) 1 tab PO Q8 [facility] Stop: 12/28/17 13:59 Carvedilol (Coreg 3.125 Mg Tablet) 3.125 mg PO DAILY [facility] Stop: 01/18/18 09:59 Last Admin: 12/21/17 09:50 Dose: 3.125 mg Dextrose (Dextrose Inj 50% Syringe (25 Gm/50 Ml)) 12.5 gm IV PRN PRN; Protocol PRN Reason: FOR BG 50-69 IN ALERT PATIENT Stop: 01/17/18 20:11 Dextrose (Dextrose Inj 50% Syringe (25 Gm/50 Ml)) 25 gm IV PRN PRN; Protocol PRN Reason: See Label Comments Stop: 01/17/18 20:11 Diltiazem HCl (Cardizem Inj 25 Mg/5 Ml Vial) 10 mg IV Q4HP PRN PRN Reason: for HR > 130 sustained Stop: 01/17/18 13:49 Glucagon (Glucagen Inj 1 Mg Vial) 1 mg SUBCUT PRN PRN; Protocol PRN Reason: Evaluate for BG < 70 Stop: 01/17/18 20:11 Glucose (Glutose 40% Gel 15 Gm Tube) 15 gm PO PRN PRN; Protocol PRN Reason: For BG 50-69 in Alert Patient Stop: 01/17/18 20:11 Glucose (Glutose 40% Gel 15 Gm Tube) 30 gm PO PRN PRN; Protocol PRN Reason: FOR BG < 50 IN ALERT PATIENT Stop: 01/17/18 20:11 Dextrose/Sodium Chloride (D5-1/4ns 1000 Ml Iv Solution) 1,000 mls @ 75 mls/hr IV CONTINUOUS PRN PRN Reason: THIS MED IS NOT "PRN" Stop: 01/20/18 08:39 Labetalol HCl (Normodyne Inj 20 Mg/4 Ml Syringe) 10 mg IV Q6HP PRN PRN Reason: for SBP > 160, or DBP > 100 Stop: 01/17/18 17:26 Last Admin: 12/21/17 05:55 Dose: 10 mg Lactobacillus Acidophilus (Bacid 250 Mg Tablet) 500 mg PO BID [facility] Stop: 01/20/18 09:59 Last Admin: 12/21/17 09:50 Dose: 500 mg Levalbuterol HCl (Xopenex Neb 1.25 Mg/3 Ml Ampul) 1.25 mg NEB RTQ4HP PRN PRN Reason: SHORTNESS OF BREATH Stop: 01/17/18 13:38 Last Admin: 12/18/17 17:08 Dose: 1.25 mg Lorazepam (Ativan Inj 2 Mg/1 Ml Vial) 1 mg IV Q4HP PRN PRN Reason: ANXIETY/AGITATION Stop: 12/25/17 13:49 Morphine Sulfate (Morphine 10 Mg/Ml Inj) 4 mg IV NOW PRN PRN Reason: FOR BREAKTHROUGH PAIN Stop: 12/25/17 08:29 Last Admin: 12/18/17 10:03 Dose: Not Given Ondansetron HCl (Zofran Inj/Pf 4 Mg/2 Ml Sdv) 4 mg IV Q4HP PRN PRN Reason: FOR NAUSEA/VOMITING Stop: 01/17/18 13:38 Oxycodone/Acetaminophen (Percocet 5-325 Mg Tablet) 1 tab PO Q4HP PRN PRN Reason: for Pain scale > or = to 4/5 Stop: 12/25/17 13:38 Prednisone (Deltasone 20 Mg Tablet) 40 mg PO DAILY [facility] Stop: 01/20/18 09:59 Last Admin: 12/21/17 09:50 Dose: 40 mg Valsartan (Diovan 160 Mg Tablet) 320 mg PO DAILY [facility] Stop: 01/18/18 09:59 Last Admin: 12/21/17 09:50 Dose: 320 mg - Allergies Allergies/Adverse Reactions: hydralazine [From Apresoline] Allergy (Verified 12/18/17 19:28) aspirin Adverse Reaction (Verified 12/18/17 13:29) - Diet/Activity Discharge Diet: Cardiac, Other (Comments) - [place] thickened liquids Hospital Course Hospital Course: MARGARETTE BAINS is a 87 year old male with past medical history of CVA x3, HTN, Afib on Eliquis, prostate cancer s/p radiation, hx of multiple hernia repairs and CKD. Presents with new onset abdominal pain that started yesterday. States that pain became severe at 3-4 AM this morning. Evaluated by CT abd/pelvis and found to have features of a strangulated hernia. Surgery evaluated him and made initial plans to take him to the OR. He was being given FFP transfusion for reversal of his Eliquis. He received IV hydralazine x1 and had a possible reaction to this. Called to patient's bedside and he had a possible flash pulmonary edema on CXR, and Afib with RVR on monitor. He was given a 20mg IV Diltiazem push, and rate improved. Was placed on Bipap and given 20mg of IV lasix x1. This may have been secondary to blood product transfusion. For a possible allergic reaction, he was given a one time solumedrol IV and benedryl IV. When patient was drinking contrast for the CT test, he was noted to have coughing with concern for possible aspiration. A second surgeon reviewed the case and was able to reduce the hernia. Lactic acid is pending. Patient will be admitted to IMCU for close monitoring. Will continue to hold Eliquis therapy for possible need for surgery at present. Patient was started on IV broad-spectrum antibiotics for possible aspiration pneumonia. CT of the abdomen and pelvis and initial chest x-ray, showed bilateral pleural effusions. There is also noted bilateral lower lobe airspace disease versus pneumonia. Chest X ray was repeated on the following day showed no significant changes. Patient had no leukocytosis or fevers. He did however have a congested cough. Speech therapy was consulted to evaluate patient prior to initiation of diet. He was noted to have mild dysphasia secondary to CVA and age. They recommended nectar thick liquids and soft diet. He was seen by physical therapy as well. He developed hematuria after being out of bed with physical therapy. Thought to be secondary to manipulation of his Anderson catheter. His Eliquis was therefore held. His daughter states every time he receives steroids when he is in the hospital he does develop hematuria since his prostate cancer. Today patient is awake and alert. He is mostly oriented except to time. His daughter and son-in-law are supportive and at bedside. They are here visiting from out of town. They would like him transferred home to [facility] in [place], [place]. Patient was noted to have worsening hypernatremia on chemistry results this morning. IV fluids were changed to D5 quarter normal saline at 75 cc/h. his appetite has improved. He has no further abdominal pain. He has had no further problems with his hernia. Bowels are moving normally. Dr. Olivo, hospitalist it [facility] in [place], [place], has graciously accepted patient in transfer. Physical Exam Vital Signs: Temp Pulse Resp BP Pulse Ox 97.8 F 67 20 164/101 H 100 12/21/17 07:13 12/21/17 07:13 12/21/17 07:13 12/21/17 07:13 12/21/17 08:00 Intake & Output 12/20/17 12/21/17 12/22/17 06:59 06:59 06:59 Intake Total 1656 635 Output Total 600 1075 Balance 1056 -440 Weight 67.7 kg 67.4 kg General appearance: PRESENT: no acute distress, hard of hearing, thin, well- developed Head exam: PRESENT: atraumatic, normocephalic Eye exam: PRESENT: conjunctiva pink, EOMI, PERRLA. ABSENT: scleral icterus Ear exam: PRESENT: normal external ear exam Mouth exam: PRESENT: moist, tongue midline Neck exam: ABSENT: carotid bruit, JVD, lymphadenopathy, thyromegaly Respiratory exam: PRESENT: crackles - Bibasilar, decreased breath sounds, symmetrical, unlabored Cardiovascular exam: PRESENT: irregular rhythm, +S1, +S2, systolic murmur - 2/6 Pulses: PRESENT: normal dorsalis pedis pul Vascular exam: PRESENT: normal capillary refill GI/Abdominal exam: PRESENT: hernia - right inguinal reducible, normal bowel sounds, soft Rectal exam: PRESENT: deferred Extremities exam: PRESENT: full ROM. ABSENT: calf tenderness, clubbing, pedal edema Musculoskeletal exam: PRESENT: ambulatory, full ROM, normal inspection Neurological exam: PRESENT: alert, awake, oriented to person, oriented to place , oriented to situation, CN II-XII grossly intact Psychiatric exam: PRESENT: appropriate affect, normal mood. ABSENT: homicidal ideation, suicidal ideation Skin exam: PRESENT: dry, intact, warm. ABSENT: cyanosis, rash Results Laboratory Results: 12/21/17 05:00 12/21/17 05:00 12/21/17 12/21/17 05:00 05:00 WBC 6.2 RBC 3.83 L Hgb 12.9 L Hct 37.8 L MCV 99 H MCH 33.7 H MCHC 34.1 RDW 14.8 H Plt Count 95 L Seg Neutrophils % 85.8 H Lymphocytes % 9.3 L Monocytes % 4.7 Eosinophils % 0.0 Basophils % 0.2 Absolute Neutrophils 5.3 Absolute Lymphocytes 0.6 Absolute Monocytes 0.3 Absolute Eosinophils 0.0 Absolute Basophils 0.0 Sodium 149.7 H Potassium 3.8 Chloride 112 H Carbon Dioxide 29 Anion Gap 9 BUN 45 H Creatinine 1.13 Est GFR ( Amer) > 60 Est GFR (Non-Af Amer) > 60 Glucose 157 H Calcium 9.0 Impressions: KUB X-Ray 12/18/17 08:29 IMPRESSION: Abnormal bowel gas pattern with distended small bowel loops centrally in the mid abdomen, worrisome for small bowel obstruction Abdomen/Pelvis CT 12/18/17 08:32 IMPRESSION: Right strangulated or incarcerated inguinal hernia with associated small bowel obstruction. Moderate size bilateral pleural effusions. Bibasilar atelectasis or infiltrate. Right kidney not visualized. Multiple cystic lesions at the level of the right kidney. Chest X-Ray 12/21/17 07:00 IMPRESSION: Bilateral pleural effusions with bibasilar airspace disease atelectasis versus pneumonia. Plan Discharge Plan: [place], [place] Time Spent: Less than 30 Minutes
[2017-12-21] MEDS ORDERED: AMOXICILLIN TR/POT CLAVULANATE 500-125 MG TAB PO SCH (14:00)
[2017-12-21 14:25] VITALS: BP 153/88
[2017-12-22] MEDS ORDERED: PREDNISONE 20 MG TABLET PO SCH (10:00)
== END 2017-12-21 15:31 | disposition short-term general hospital (02) | DRG 393 ==
LOC: ER 07:57 → EH 12:50 → UNDOADMIN 12:50 → EH 13:39 → 3S 19:04
PROVIDERS: ADMIT Surgery; ATTEND Surgery
PROC: 30233K1 Transfusion of Nonautologous Frozen Plasma into Peripheral Vein, Percutaneous Approach (ICD-10-PCS; principal; 2017-12-18)
DX: K40.30 Unilateral inguinal hernia, with obstruction, without gangrene, not specified as recurrent (principal); J69.0 Pneumonitis due to inhalation of food and vomit; E87.0 Hyperosmolality and hypernatremia; N17.9 Acute kidney failure, unspecified; K40.31 Unilateral inguinal hernia, with obstruction, without gangrene, recurrent; I48.91 Unspecified atrial fibrillation; I69.321 Dysphasia following cerebral infarction; I16.0 Hypertensive urgency; E86.0 Dehydration; R79.1 Abnormal coagulation profile; I12.9 Hypertensive chronic kidney disease with stage 1 through stage 4 chronic kidney disease, or unspecified chronic kidney disease; R31.9 Hematuria, unspecified; T46.5X5A Adverse effect of other antihypertensive drugs, initial encounter; N18.9 Chronic kidney disease, unspecified; Z79.02 Long term (current) use of antithrombotics/antiplatelets; Z90.49 Acquired absence of other specified parts of digestive tract; Z87.891 Personal history of nicotine dependence; Z88.6 Allergy status to analgesic agent; Z85.46 Personal history of malignant neoplasm of prostate; Z92.3 Personal history of irradiation
CPT/HCPCS: 36415; 36430; 71045; 71046; 74018; 74177; 80048; 80053; 80061; 81001; 82962; 83605; 83735; 85025; 85027; 85610; 85730; 86850; 86900; 86901; 87040; 87077; 87186; 93005; 93010; 94660; 96374; 99285; G8978-GP; G8979-GP; G8996-GN; G8997-GN; G8998-GN; J0360; J1200; J1940; J2543; J2930; J3010; J3490; J7040; J7512; P9017